=== PATIENT | female | born 1970 | race Caucasian/White ===

== ENCOUNTER → 2017-04-25 | Outpatient (CLI) | payer OTHER ==
[2017-04-25] MEDS: ZOLPIDEM 5 MG TABLET. PO (21:15)
== END | disposition home or self-care (01) ==
LOC: RT 18:51
DX: G47.33 Obstructive sleep apnea (adult) (pediatric) (principal); R53.82 Chronic fatigue, unspecified
CPT/HCPCS: 95810

== ENCOUNTER 2018-01-17 13:13 | Emergency (ER) | payer OTHER ==
[~2018-01-17] VITALS: Ht 162.6 cm; Wt 88.5 kg
[~2018-01-17 13:13] MED LIST: ASPI-482 PO; CAND32TA2 PO; CARV25TA2 PO; CILO50TA PO; CLOP75TA PO; CRESTOR40 MG PO; DESV50TA PO; EZET10TA18 PO; FURO-69 PO; IBUP-1007 PO; NITR0.4T22 SL; OMEG10005 PO; PEDI0.2512 PO; POTA20TA4 PO; PRAM0.5T5 PO; PRAS10TA9 PO
[2018-01-17] MEDS ORDERED: IV NORMAL SALINE 1000ML BAG 1,000 ML IV ONE (13:30)
--- NOTE | 2018-01-17 13:39 | EKG ---
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
[2018-01-17 13:44] LABS: BASO # 0.1 x10^3/uL (0.0-0.2); BASO % 1 % (0-3); EOS # 0.3 x10^3/uL (0.0-0.7); EOS % 3 % (0-3); HEMATOCRIT 36.1 % (36.0-47.0); HEMOGLOBIN 12.2 g/dL (12.0-15.5); LYMPH # 3.1 x10^3/uL (1.0-4.8); LYMPH % 34 % (24-48); MEAN CORPUSCULAR HEMOGLOBIN 30 pg (25-35); MEAN CORPUSCULAR HGB CONC 34 g/dL (31-37); MEAN CORPUSCULAR VOLUME 89 fL (79-100); MONO # 0.5 x10^3/uL (0.0-1.1); MONO % 6 % (0-9); NEUT % 56 % (31-73); PLATELET COUNT 231 x10^3/uL (140-400); RED BLOOD COUNT 4.07 x10^6/uL (3.50-5.40); RED CELL DISTRIBUTION WIDTH 14.5 % (11.5-14.5)
[2018-01-17] MEDS ORDERED: ONDANSETRON PF 4 MG/2 ML VIAL. IV ONE (13:45)
[2018-01-17 14:00] LABS: CALCIUM 9.5 mg/dL (8.5-10.1); CREATININE 0.9 mg/dL (0.6-1.0); GFR 66.8; POTASSIUM 3.7 mmol/L (3.5-5.1)
[2018-01-17 14:07] LABS: ALBUMIN/GLOBULIN RATIO 1.1 (1.0-1.7); MAGNESIUM 1.8 mg/dL (1.8-2.4); TOTAL BILIRUBIN 0.4 mg/dL (0.2-1.0); TOTAL PROTEIN 7.5 g/dL (6.4-8.2)
--- NOTE | 2018-01-17 14:26 | PHYS DOC ---
Past Medical History Past Medical History: High Cholesterol, [place] Past Surgical History: Hysterectomy, Other Additional Past Surgical Histo: Defibrillator placement following [place]. Alcohol Use: Occasionally Drug Use: None Adult General Chief Complaint Chief Complaint: DIZZY/LIGHT HEADED HPI HPI Patient is a 47 year old [f__sex] who presents with [] Review of Systems Review of Systems Constitutional: Denies fever or chills [] Eyes: Denies change in visual acuity, redness, or eye pain [] HENT: Denies nasal congestion or sore throat [] Respiratory: Denies cough or shortness of breath [] Cardiovascular: No additional information not addressed in HPI [] GI: Denies abdominal pain, nausea, vomiting, bloody stools or diarrhea [] : Denies dysuria or hematuria [] Musculoskeletal: Denies back pain or joint pain [] Integument: Denies rash or skin lesions [] Neurologic: Denies headache, focal weakness or sensory changes [] Endocrine: Denies polyuria or polydipsia [] All other systems were reviewed and found to be within normal limits, except as documented in this note. Current Medications Current Medications Current Medications Medications (Trade) Dose Ordered Sig/Reece Start Time Stop Time Status Last Admin Dose Admin Lorazepam (Ativan) 0.5 mg 1X ONCE 01/17/18 13:45 01/17/18 13:51 DC 01/17/18 14:16 0.5 MG Ondansetron HCl (Zofran) 4 mg 1X ONCE 01/17/18 13:45 01/17/18 13:51 DC 01/17/18 14:15 4 MG Sodium Chloride 1,000 ml @ 1,000 mls/hr 1X ONCE 01/17/18 13:30 01/17/18 14:29 DC 01/17/18 14:15 1,000 MLS/HR Allergies Allergies Allergies Coded Allergies Type Severity Reaction Last Updated Verified Sulfa (Sulfonamide Antibiotics) Allergy Intermediate 03/07/16 Yes Physical Exam Physical Exam Constitutional: Well developed, well nourished, no acute distress, non-toxic appearance. [] HENT: Normocephalic, atraumatic, bilateral external ears normal, oropharynx moist, no oral exudates, nose normal. [] Eyes: PERRLA, EOMI, conjunctiva normal, no discharge. [] Neck: Normal range of motion, no tenderness, supple, no stridor. [] Cardiovascular:Heart rate regular rhythm, no murmur [] Lungs & Thorax: Bilateral breath sounds clear to auscultation [] Abdomen: Bowel sounds normal, soft, no tenderness, no masses, no pulsatile masses. [] Skin: Warm, dry, no erythema, no rash. [] Back: No tenderness, no CVA tenderness. [] Extremities: No tenderness, no cyanosis, no clubbing, ROM intact, no edema. [] Neurologic: Alert and oriented X 3, normal motor function, normal sensory function, no focal deficits noted. [] Psychologic: Affect normal, judgement normal, mood normal. [] Current Patient Data Vital Signs Vital Signs Date Time Temp Pulse Resp B/P (MAP) Pulse Ox O2 Delivery O2 Flow Rate FiO2 01/17/18 14:17 70 20 96 01/17/18 13:13 98.3 115/72 (86) Room Air 98.3 Lab Values Laboratory Tests Test 01/17/18 13:20 01/17/18 14:40 01/17/18 15:50 White Blood Count 9.0 x10^3/uL (4.0-11.0) Red Blood Count 4.07 x10^6/uL (3.50-5.40) Hemoglobin 12.2 g/dL (12.0-15.5) Hematocrit 36.1 % (36.0-47.0) Mean Corpuscular Volume 89 fL (79-100) Mean Corpuscular Hemoglobin 30 pg (25-35) Mean Corpuscular Hemoglobin Concent 34 g/dL (31-37) Red Cell Distribution Width 14.5 % (11.5-14.5) Platelet Count 231 x10^3/uL (140-400) Neutrophils (%) (Auto) 56 % (31-73) Lymphocytes (%) (Auto) 34 % (24-48) Monocytes (%) (Auto) 6 % (0-9) Eosinophils (%) (Auto) 3 % (0-3) Basophils (%) (Auto) 1 % (0-3) Neutrophils # (Auto) 5.0 x10^3uL (1.8-7.7) Lymphocytes # (Auto) 3.1 x10^3/uL (1.0-4.8) Monocytes # (Auto) 0.5 x10^3/uL (0.0-1.1) Eosinophils # (Auto) 0.3 x10^3/uL (0.0-0.7) Basophils # (Auto) 0.1 x10^3/uL (0.0-0.2) Sodium Level 142 mmol/L (136-145) Potassium Level 3.7 mmol/L (3.5-5.1) Chloride Level 104 mmol/L (98-107) Carbon Dioxide Level 27 mmol/L (21-32) Anion Gap 11 (6-14) Blood Urea Nitrogen 11 mg/dL (7-20) Creatinine 0.9 mg/dL (0.6-1.0) Estimated GFR (Cockcroft-Gault) 66.8 BUN/Creatinine Ratio 12 (6-20) Glucose Level 105 mg/dL (70-99) H Calcium Level 9.5 mg/dL (8.5-10.1) Magnesium Level 1.8 mg/dL (1.8-2.4) Total Bilirubin 0.4 mg/dL (0.2-1.0) Aspartate Amino Transferase (AST) 23 U/L (15-37) Alanine Aminotransferase (ALT) 49 U/L (14-59) Alkaline Phosphatase 46 U/L (46-116) Creatine Kinase 123 U/L (26-192) Creatine Kinase MB (Mass) 1.2 ng/mL (0.0-3.6) Creatine Kinase MB Relative Index 1.0 % (0-4) Troponin I Quantitative < 0.017 ng/mL (0.000-0.055) Total Protein 7.5 g/dL (6.4-8.2) Albumin 4.0 g/dL (3.4-5.0) Albumin/Globulin Ratio 1.1 (1.0-1.7) Lactic Acid Level 1.0 mmol/L (0.4-2.0) Urine Collection Type Void Urine Color Yellow Urine Clarity Clear Urine pH 7.5 Urine Specific [place] 1.010 Urine Protein Negative mg/dL (NEG-TRACE) Urine Glucose (UA) Negative mg/dL (NEG) Urine Ketones (Stick) Negative mg/dL (NEG) Urine Blood Negative (NEG) Urine Nitrite Negative (NEG) Urine Bilirubin Negative (NEG) Urine Urobilinogen Dipstick 1.0 mg/dL (0.2 mg/dL) Urine Leukocyte Esterase Negative (NEG) Urine RBC Occ /HPF (0-2) Urine WBC Occ /HPF (0-4) Urine Squamous Epithelial Cells Occ /LPF Urine Bacteria Few /HPF (0-FEW) Laboratory Tests 01/17/18 13:20 Laboratory Tests 01/17/18 13:20 EKG EKG @1316P NSR at 79bpm, NO ST elevation, low voltage QRS, nonspecific t wave aVL Radiology/Procedures Radiology/Procedures [] Course & Med Decision Making Course & Med Decision Making Pertinent Labs and Imaging studies reviewed. (See chart for details) [] Dragon Disclaimer Dragon Disclaimer This electronic medical record was generated, in whole or in part, using a voice recognition dictation system. Departure Departure Impression: Primary Impression: Dizziness Additional Impression: Anxiety Disposition: 01 HOME, SELF-CARE Condition: IMPROVED Referrals: BHASKAR LEMOS MD (PCP) Patient Instructions: Anxiety and Panic Attacks, [id number], Dizziness, Easy- to-Read Scripts Lorazepam (ATIVAN) 0.5 Mg Tablet 0.5 MG PO TID PRN for ANXIETY, #10 TAB Prov: ZAYDA SHARMA DO 01/17/18 Problem Qualifiers ZAYDA SHARMA DO Jan 17, 2018 14:26
[2018-01-17 16:09] LABS: BILIRUBIN,URINE NEGATIVE (NEG); CLARITY,URINE CLEAR; COLOR,URINE YELLOW; NITRITE,URINE NEGATIVE (NEG); PH,URINE 7.5; PROTEIN,URINE NEGATIVE (NEG-TRACE)
[2018-01-17 16:19] LABS: BACTERIA,URINE FEW /HPF (0-FEW); RBC,URINE OCC /HPF (0-2); SQUAMOUS EPITHELIAL CELL,UR OCC /LPF; WBC,URINE OCC /HPF (0-4)
[2018-01-17] MEDS ORDERED: LORA0.5T96 PO (16:34)
[2018-01-17 16:35] VITALS: BP 111/64
== END 2018-01-17 16:52 | disposition home or self-care (01) ==
LOC: ER 13:13
DX: F41.9 Anxiety disorder, unspecified (principal); R42 Dizziness and giddiness; E78.00 Pure hypercholesterolemia, unspecified; I25.2 Old myocardial infarction; Z90.710 Acquired absence of both cervix and uterus; Z88.2 Allergy status to sulfonamides
CPT/HCPCS: 36415; 80053; 81001; 82553; 83605; 83735; 84484; 85025; 93005; 96361; 96374; 96375; 99285; J2060; J2405; J7030

== ENCOUNTER 2020-04-22 07:06 | Outpatient (CLI) | payer OTHER ==
[~2020-04-22] VITALS: Ht 160 cm; Wt 90.7 kg
[2020-04-22] VITALS (9 sets, daily range): BP systolic 106–143; BP diastolic 71–97
[~2020-04-22 07:06] MED LIST changes: +CAND32TA19 PO; -CAND32TA2 PO; -EZET10TA18 PO; +EZET10TA20 PO; +LORA0.5T96 PO
[2020-04-22 07:33] LABS: RED BLOOD COUNT 4.37 x10^6/uL (3.50-5.40); RED CELL DISTRIBUTION WIDTH 14.1 % (11.5-14.5); WHITE BLOOD COUNT 10.8 x10^3/uL (4.0-11.0)
[2020-04-22] MEDS ORDERED: IODIXANOL 320 MG/ML 100 ML VIAL. ONE (07:39)
[2020-04-22] MEDS ORDERED: LIDOCAINE 1% Multi-Dose 20 ML VIAL. ONE (07:39)
[2020-04-22 07:45] LABS: CALCIUM 8.1 mg/dL (8.5-10.1); CREATININE 0.9 mg/dL (0.6-1.0); GFR 66.3; POTASSIUM 3.6 mmol/L (3.5-5.1); PROTHROMBIN TIME PATIENT 12.6 SEC (11.7-14.0)
[2020-04-22] MEDS ORDERED: HEPARIN for IV BOLUS 10,000 UNIT/10 ML VIAL. ONE (07:59)
[2020-04-22] MEDS ORDERED: MIDAZOLAM HCL/PF 2 MG/2 ML VIAL. ONE (07:59)
[2020-04-22] MEDS ORDERED: fentaNYL PF VIAL 100 MCG/2 ML VIAL ONE (07:59)
[2020-04-22] MEDS ORDERED: VERAPAMIL 5 MG/2 ML VIAL. ONE (07:59)
[2020-04-22] MEDS ORDERED: NITROGLYCERIN 200 MCG/2 ML SYRINGE FOR CATH/VASC LAB. ONE (08:00)
[2020-04-22] MEDS ORDERED: HEPARIN for IV BOLUS 10,000 UNIT/10 ML VIAL. IART ONE (08:30)
[2020-04-22] MEDS ORDERED: VERAPAMIL 5 MG/2 ML VIAL. IART ONE (08:30)
[2020-04-22] MEDS ORDERED: MIDAZOLAM HCL/PF 2 MG/2 ML VIAL. IV ONE (08:30)
[2020-04-22] MEDS ORDERED: IODIXANOL 320 MG/ML 100 ML VIAL. IART ONE (08:30)
[2020-04-22] MEDS ORDERED: LIDOCAINE 1% Multi-Dose 20 ML VIAL. INJ ONE (08:30)
[2020-04-22] MEDS ORDERED: fentaNYL PF VIAL 100 MCG/2 ML VIAL IV ONE (08:30)
[2020-04-22] MEDS ORDERED: NITROGLYCERIN 200 MCG/2 ML SYRINGE FOR CATH/VASC LAB. IART ONE (08:30)
[2020-04-22] MEDS ORDERED: CONTRAST GIVEN. MC PRN (08:45)
--- NOTE | 2020-04-22 09:07 | PDOC4 ---
BRIEF OPERATIVE NOTE Pre-Op Diagnosis CAD Post-Op Diagnosis CAD Procedure Performed [facility], Coronary angiography Surgeon [employer] Service Team Member Kristin Valente EBL 5 ml Anesthesiologist None Anesthesia Type: Conscious Sedation Specimens Obtained None Findings One vessel CAD with normal LVEDP. No changes from prior Complications None immediate URIEL GODOY MD Apr 22, 2020 09:07
--- NOTE | 2020-04-22 09:07 | PDOC ---
MODERATE SEDATION ASSESSMENT RISKS/ALTERNATIVES Risks/Alternatives Risks and alternatives of this type of sedation and procedure discussed with: RISK/ALTERNATIVES: Patient H & P ON CHART H & P H & P on chart and reviewed for co-morbid conditions and appropriate labs. H&P ON CHART: Yes STATUS PREG STATUS ASSESSED: N/A MEDS/ALLERGIES REVIEWED Meds/Allergies Reviewed Medications and Allergies including time and route of recently administered narcotics and sedatives. MEDS/ALLERGIES REVIEWED: Yes ASA RATING ASA RATING: II AIRWAY ASSESSMENT Airway Assessment Airway patency, oral function limitations, presence of caps, crowns, dentures, partials, and ability to extend neck assessed. AIRWAY ASSESSMENT: Yes MALLAMPATI SCORE MALLAMPATI SCORE: II PRE-SEDATION ASSESSMENT PRE-SEDATION ASSESSMENT: Yes (Late entry) URIEL GODOY MD Apr 22, 2020 09:07
--- NOTE | 2020-04-22 09:56 | CARD ---
MR#: [id number] Date of Study: 04/22/2020 Ordering Physician: URIEL GODOY, Referring Physician: URIEL GODOY, Tech: COLEEN FLORES RTR APPROVED REPORT Technologist: COLEEN FLORES RTR Nurse: Alison Whitaker RN Procedure(s) performed: MODERATE SEDATION TIME: 20 MINUTES FLUORO TIME: 2.1 MIN DOSE: 61.1 GYCM2 CONTRAST: 46CC VIS[facility], Coronary angiography HISTORY The patient is a 49 year-old female with a history of : coronary artery disease, hypertension, dyslip idemia, family history of premature CAD. INDICATION The indication(s) include : unstable angina , dyspnea. [facility] Clinical Frailty Scale [facility] Clinical Frailty Scale: Managing Well Heart Failure Heart Failure: Yes If Yes, Newly Diagnosed: No If Yes, HF Type: Systolic If Yes, NYHA Class: Class II PROCEDURE NARRATIVE Clinical information: 49 y.o woman presents for evaluation of chest pain and dyspnea with known history of ischemic CMP and EF of 35% and prior anterior infarct. Informed consent: Written informed consent was obtained from the patient after adequate discussion of the risks and caroline efits of the procedure. Procedure details: ACCESS: The right wrist was prepped and draped in usual sterile fashion. Under 1% lidocaine local anesthesia a 6 American Terumo sheath was placed in the right radial artery via the Seldinger technique. DIAGNOSTIC ANGIOGRAPHY: Right and left coronary arteries were engaged with a 6 American TIG catheter. Diagnostic angiography i n multiple views were obtained. Next, a 6 American pigtail catheter was placed in the left ventricle a nd a LVEDP was measured. A pullback was performed . All catheters were exchanged over J-tip guidewi re. FINDINGS: ======= Aorta: 110/80 LVEDP: 5 mmHg Left ventriculogram: Deferred due to known EF of 35% Coronary angiography: LM: Large caliber vessel with normal angiographic appearance LAD: Moderate caliber vessel with severe negative remodeling with a patent mid stent with 50% ISR. D1: Large caliber dominant vessel with mild luminal irregularities. D2: Small caliber vessel with a patent stent extending from the LAD with 40-50% proximal ISR. LCX: Moderate caliber non-dominant vessel with mild luminal irregularities OM1: Moderate caliber vessel with normal angiographic appearance LPL1: Moderate caliber vessel with normal angiographic appearance. RCA: Large caliber dominant vessel with a mid 30% stenosis. RPDA: Moderate caliber vessel with mild luminal irregularities. CLOSURE: At case completion the right radial sheath was removed and a Terumo radial band was applied with 11 m L of air. Hemostasis was achieved. COMPLICATIONS: No acute complications noted Conclusion 1. Normal left sided filling pressures. 2. One vessel CAD with patent LAD/D2 stents, unchanged from prior angiogram in 2016. Recommendations 1. Aggressive medical therapy and risk factor modification. Signed by : Uriel Godoy, Electronically Approved : 04/22/2020 09:55:34
[2020-04-22] MEDS ORDERED: SPIR25TA5 PO (10:29)
[2020-04-22] MEDS ORDERED: EMPA10TA PO (10:31)
--- NOTE | 2020-04-22 11:49 | NUR ---
discharge instructions reviewed with patient and family. pt prescriptions given to pt. TR band dc'd and armboard reapplied. Pt transferred to Cardiac center for Echocardiogram
[2020-04-22] MEDS ORDERED: PERFLUTREN PROTEIN-A MICROSPHR 0.22 MG/ML 3 ML VIAL. IV ONE ×2 (12:40→13:45)
--- NOTE | 2020-04-22 17:16 | CARD ---
MR#: [id number] Date of Study: 04/22/2020 Ordering Physician: URIEL GODOY, Referring Physician: URIEL GODOY, Tech: Lise Rose [facility] APPROVED REPORT EXAM: Two-dimensional and M-mode echocardiogram with Doppler and color Doppler. Other Information Quality : Technically Limited INDICATION Cardiac Disease: CAD S/P Cath, Pacemaker Echo Enhancing Agent Agent/Amount Used: Optison 2mL 2D DIMENSIONS RVDd2.6 (2.9-3.5cm)Left Atrium(2D)3.9 (1.6-4.0cm) IVSd0.8 (0.7-1.1cm)Aortic Root(2D)2.9 (2.0-3.7cm) LVDd5.9 (3.9-5.9cm)LVOT Diameter2.3 (1.8-2.4cm) PWd1.0 (0.7-1.1cm)LVDs4.4 (2.5-4.0cm) FS (%) 25.9 %SV87.8 ml Aortic Valve AoV Peak Kolby.130.5cm/sAoV VTI21.6cm AO Peak GR.6.8mmHgLVOT Peak Kolby.104.9cm/s AO Mean GR.4mmHgAVA (VMAX)3.22cm2 TALI (VTI)3.80cm2 Mitral Valve MV E Lmznqikm95.2cm/sMV DECEL NUMW421ad MV A Bedpnntk51.4cm/sE/A Ratio1.2 Tricuspid Valve TR P. Fgenqhae411iq/sRAP HZRLYXTH0lgVj TR Peak Gr.80jvDtMJZD40wpWx Pulmonary Vein S1 Gqqfashz20.8cm/sD2 Rpaaeecr42.6cm/s LEFT VENTRICLE The left ventricle is normal size. There is normal left ventricular wall thickness. Left ventricle sy stolic function is mildly impaired. The Ejection Fraction is 40-45%. There is global hypokinesis of t he left ventricle. The left ventricular diastolic function and filling is normal for age. RIGHT VENTRICLE The right ventricle is normal size. The right ventricular systolic function is normal. There are heydi ce leads in the right ventricle and atrium. ATRIA The left atrium size is normal. The right atrium size is normal. The interatrial septum is intact wit h no evidence for an atrial septal defect or patent foramen ovale as noted on 2-D or Doppler imaging. AORTIC VALVE The aortic valve is normal in structure and function. Doppler and Color Flow revealed no significant aortic regurgitation. There is no significant aortic valvular stenosis. MITRAL VALVE The mitral valve is normal in structure and function. There is no evidence of mitral valve prolapse. There is no mitral valve stenosis. Doppler and Color-flow revealed trace to mild mitral regurgitation . TRICUSPID VALVE The tricuspid valve is normal in structure and function. Doppler and Color Flow revealed trace to mil d tricuspid regurgitation. The PA pressure was estimated at 28 mmHg. There is no tricuspid valve sten osis. PULMONIC VALVE The pulmonic valve is not well visualized. Doppler and Color Flow revealed no pulmonic valvular regur gitation. There is no pulmonic valvular stenosis. GREAT VESSELS The aortic root is normal in size. The ascending aorta is normal in size. The IVC is normal in size a nd collapses >50% with inspiration. PERICARDIAL EFFUSION There is no evidence of significant pericardial effusion. Critical Notification Critical Value: No <Conclusion> The left ventricle is normal size. Left ventricle systolic function is mildly impaired. The Ejection Fraction is 40-45%. There is global hypokinesis of the left ventricle. Doppler and Color Flow revealed no significant aortic regurgitation. There is no significant aortic valvular stenosis. Doppler and Color-flow revealed trace to mild mitral regurgitation. Doppler and Color Flow revealed trace to mild tricuspid regurgitation. The PA pressure was estimated at 28 mmHg. Signed by : J Luis Parker MD Electronically Approved : 04/22/2020 17:15:38
== END 2020-04-22 12:26 | disposition home or self-care (01) ==
LOC: CCL 07:06 → MERGE 08:30 → CCL 12:26
PROVIDERS: ATTEND Internal Medicine Cardiovascular Disease
DX: I25.110 Atherosclerotic heart disease of native coronary artery with unstable angina pectoris (principal); I25.5 Ischemic cardiomyopathy; I10 Essential (primary) hypertension; E78.00 Pure hypercholesterolemia, unspecified; F32.9 Major depressive disorder, single episode, unspecified; Z79.82 Long term (current) use of aspirin; Z79.899 Other long term (current) drug therapy; Z98.890 Other specified postprocedural states; Z88.2 Allergy status to sulfonamides
CPT/HCPCS: 36415; 80048; 85027; 85610; 93458; 99152; C1769; C1892; C8929; J1644; J2250; J3010; J3490; Q9956; Q9967

== ENCOUNTER → 2021-03-30 | Outpatient (CLI) | payer OTHER ==
[2020-04-22 11:00] VITALS: BP 106/71
[~2021-03-30] MED LIST changes: +EMPA10TA PO; +POTA-121 PO; -POTA20TA4 PO; +SPIR25TA5 PO
[2021-03-30 12:36] LABS: BASO # 0.1 x10^3/uL (0.0-0.2); BASO % 1 % (0-3); EOS # 0.2 x10^3/uL (0.0-0.7); EOS % 2 % (0-3); HEMATOCRIT 37.5 % (36.0-47.0); HEMOGLOBIN 12.3 g/dL (12.0-15.5); LYMPH # 2.1 x10^3/uL (1.0-4.8); LYMPH % 29 % (24-48); MEAN CORPUSCULAR HEMOGLOBIN 31 pg (25-35); MEAN CORPUSCULAR HGB CONC 33 g/dL (31-37); MEAN CORPUSCULAR VOLUME 95 fL (79-100); MONO # 0.5 x10^3/uL (0.0-1.1); MONO % 7 % (0-9); NEUT # 4.6 x10^3/uL (1.8-7.7); NEUT % 62 % (31-73); PLATELET COUNT 182 x10^3/uL (140-400); RED BLOOD COUNT 3.95 x10^6/uL (3.50-5.40); RED CELL DISTRIBUTION WIDTH 14.8 % (11.5-14.5); WHITE BLOOD COUNT 7.5 x10^3/uL (4.0-11.0)
[2021-03-30 12:59] LABS: ALBUMIN/GLOBULIN RATIO 1.3 (1.0-1.7); CALCIUM 8.2 mg/dL (8.5-10.1); CREATININE 1.1 mg/dL (0.6-1.0); GFR 52.4; POTASSIUM 4.2 mmol/L (3.5-5.1); TOTAL BILIRUBIN 0.4 mg/dL (0.2-1.0); TOTAL PROTEIN 7.1 g/dL (6.4-8.2)
[2021-03-30 13:01] LABS: CHOLESTEROL/HDL RATIO 2.6
[2021-03-30 13:11] LABS: FREE T4 0.91 ng/dL (0.76-1.46); THYROID STIM HORMONE (TSH) 20.606 uIU/mL (0.358-3.74)
== END ==
LOC: LAB 11:51
PROVIDERS: ATTEND Internal Medicine Cardiovascular Disease
DX: I25.5 Ischemic cardiomyopathy (principal)
CPT/HCPCS: 36415; 80053; 80061; 83721; 84439; 84443; 85025